=== PATIENT | female | born 1975 | race Caucasian/White ===

== ENCOUNTER 2016-03-18 11:40 | Observation (INO) | payer OTHER, MEDICARE ==
[2016-03-18] MEDS ORDERED: Zofran 4 MG/2 ML VIAL IV ONE (11:54)
[2016-03-18] MEDS ORDERED: TORAdol 30 mg Injection IV ONE (11:54)
[2016-03-18] MEDS ORDERED: Sodium Chloride 0.9% 1000 ML 1,000 ML ONE (12:18)
[2016-03-18] MEDS ORDERED: TORAdol 30 mg Injection ONE (12:18)
[2016-03-18] MEDS ORDERED: Zofran 4 MG/2 ML VIAL ONE (12:18)
[2016-03-18] MEDS: Sodium Chloride 0.9% 1000 ML 1,000 ML IV SCH (12:20)
[2016-03-18 12:26] LABS: Mean Cell Volume 89.9 fl (78-100); Mean Corpuscular Hemoglobin 28.3 pg (26-32); Platelet Count 305 K/mm3 (150-450); Red Blood Count 4.67 M/mm3 (4.1-5.4); Red Cell Distribution Width 18.7 % (11.5-14.0); White Blood Count 11.5 K/mm3 (4.0-10.5)
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
[2016-03-18 12:48] LABS: ALKALINE PHOSPHATASE 91 U/L (46-116); ANION GAP 15.4 MEQ/L (5-15); BLOOD UREA NITROGEN 8 mg/dL (9-20); CHLORIDE 102 mEq/L (98-107); Carbon Dioxide 24.1 mEq/L (21-32); Glucose 102 MG/DL (70-110); Potassium 4.4 mEq/L (3.5-5.1); SGOT/AST 29 U/L (15-37); SGPT/ALT 14 U/L (12-78); SODIUM 137 mEq/L (136-145); Total Protein 7.8 gm/dL (6.4-8.2)
[2016-03-18 13:23] LABS: Basophil 1 % (0.0-1.0); Eosinophil 2 % (0.00-3.0); Total Cells Counted 100
[2016-03-18 13:25] LABS: Platelet Estimate NORMAL (NORMAL)
[2016-03-18 13:26] LABS: ANISOCYTOSIS 1+
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
[2016-03-18] MEDS ORDERED: Zofran 4 MG/2 ML VIAL IV PRN ×2 (14:26→15:41)
[2016-03-18] MEDS ORDERED: TORAdol 30 mg Injection IV PRN (14:26)
[2016-03-18] MEDS ORDERED: Ativan 1 MG PO ONE (14:35)
[2016-03-18] MEDS ORDERED: Ativan 1 MG ONE (14:36)
[2016-03-18 14:49] LABS: Collection Type VOID
[2016-03-18 14:50] LABS: COMPLETE URINE MICROSCOPIC? NO; Ph 6.5 (5-6)
[2016-03-18] MEDS: TORAdol 30 mg Injection IV PRN ×2 (16:14→22:08)
[2016-03-18] MEDS: Nicoderm CQ 21 MG TOP SCH (16:14)
[2016-03-18] MEDS ORDERED: Ativan 0.5 MG PO PRN (16:37)
[2016-03-18] MEDS ORDERED: Norco 10/325 MG Tablet PO PRN (20:42)
[2016-03-18] MEDS: NORTRIPTYLINE HCL PO SCH (21:31)
[2016-03-18] MEDS: NON-FORMULARY ITEM PO SCH (21:32)
[2016-03-18] MEDS: Risperdal 1 MG PO SCH (21:32)
[2016-03-18] MEDS ORDERED: NORTRIPTYLINE HCL PO SCH (22:00)
[2016-03-18] MEDS ORDERED: NON-FORMULARY ITEM (Lorazepam [Ativan] 2 MG) PO SCH (22:00)
[2016-03-19] MEDS: Ativan 1 MG PO PRN ×4 (01:10→22:31)
[2016-03-19] MEDS: TORAdol 30 mg Injection IV PRN ×3 (06:59→19:02)
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
[2016-03-19] MEDS: NEURONTIN 300 MG PO SCH (08:59)
[2016-03-19] MEDS: OXYCODONE-ACETAMINOPHEN 10-325 PO PRN ×3 (09:00→21:02)
[2016-03-19] MEDS: Sodium Chloride 0.9% 1000 ML 1,000 ML IV SCH (09:10)
[2016-03-19] MEDS: Nicoderm CQ 21 MG TOP SCH (09:10)
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
[2016-03-19] MEDS ORDERED: GABAPENTIN PO SCH (10:00)
[2016-03-19] MEDS: Cyclobenzaprine 10 MG PO PRN (12:06)
[2016-03-19] MEDS: NON-FORMULARY ITEM PO SCH (21:01)
[2016-03-19] MEDS: Risperdal 1 MG PO SCH (21:02)
[2016-03-19] MEDS: NORTRIPTYLINE HCL PO SCH (21:07)
[2016-03-20] MEDS: TORAdol 30 mg Injection IV PRN ×4 (01:16→19:32)
[2016-03-20] MEDS: Sodium Chloride 0.9% 1000 ML 1,000 ML IV SCH (05:00)
[2016-03-20] MEDS: OXYCODONE-ACETAMINOPHEN 10-325 PO PRN ×5 (05:02→21:35)
--- NOTE | 2016-03-20 08:31 | XRAY ---
Indication: Follow-up pneumothorax. Comparison: One day earlier PA/lateral chest demonstrates stable right apical pneumothorax with new small left base effusion and diminished right base atelectasis. Stable right rib fractures without subcutaneous emphysema. The remaining heart and lungs unremarkable.
[2016-03-20] MEDS: NEURONTIN 300 MG PO SCH (09:38)
--- NOTE | 2016-03-20 09:38 | PCM.DCORD ---
- Discharge Discharge Date: 03/20/16 Disposition: Home, Self-Care Condition: Good Prescriptions: New Cyclobenzaprine HCl 10 mg [Cyclobenzaprine 10 MG] 10 mg PO TID PRN PRN #21 tablet PRN Reason: Muscle Spasms Meloxicam [Mobic] 15 mg PO DAILY #30 tablet Continue Risperidone 1 mg [Risperdal 1 MG] 1 mg PO HS Nortriptyline HCl [Pamelor] 3 cap PO HS Gabapentin [Gralise] 1 tab PO DAILY Discontinued Propranolol HCl 0 mg PO UD Lorazepam [Ativan] 2 mg PO HS Additional Instructions: Follow up with Dr. Joiner in one week and you will need to have a repeat chest X -ray ordered at that time for follow up. Follow up with: SAMY JOINER [ACTIVE STAFF] -
[2016-03-20] MEDS: Cyclobenzaprine 10 MG PO PRN ×2 (11:07→17:27)
[2016-03-20] MEDS: Ativan 1 MG PO PRN ×3 (11:07→23:04)
[2016-03-20] MEDS: Nicoderm CQ 21 MG TOP SCH (13:28)
[2016-03-20] MEDS: Risperdal 1 MG PO SCH (21:35)
[2016-03-20] MEDS: NON-FORMULARY ITEM PO SCH (21:37)
[2016-03-20] MEDS: NORTRIPTYLINE HCL PO SCH (21:37)
[2016-03-21] MEDS: TORAdol 30 mg Injection IV PRN (03:07)
[2016-03-21] MEDS: Sodium Chloride 0.9% 1000 ML 1,000 ML IV SCH (03:16)
[2016-03-21] MEDS: OXYCODONE-ACETAMINOPHEN 10-325 PO PRN (08:22)
[2016-03-21] MEDS: Ativan 1 MG PO PRN (08:25)
[2016-03-21] MEDS: NEURONTIN 300 MG PO SCH (09:21)
[2016-03-21] MEDS: Cyclobenzaprine 10 MG PO PRN (11:00)
[2016-03-21] MEDS: Mobic 7.5 MG PO SCH ×2 (11:00→12:45)
[2016-03-21] MEDS: Nicoderm CQ 21 MG TOP SCH (11:04)
--- NOTE | 2016-03-21 11:10 | PCM.DCORD ---
- Discharge Discharge Date: 03/21/16 Disposition: Home, Self-Care Condition: Good Prescriptions: New Cyclobenzaprine HCl 10 mg [Cyclobenzaprine 10 MG] 10 mg PO TID PRN PRN #21 tablet PRN Reason: Muscle Spasms Meloxicam [Mobic] 15 mg PO DAILY #30 tablet Continue Risperidone 1 mg [Risperdal 1 MG] 1 mg PO HS Nortriptyline HCl [Pamelor] 3 cap PO HS Gabapentin [Gralise] 1 tab PO DAILY Discontinued Propranolol HCl 0 mg PO UD Lorazepam [Ativan] 2 mg PO HS Instructions: Pneumothorax, Rib Fracture Additional Instructions: Follow up with Dr. Joiner in one week and you will need to have a repeat chest X -ray ordered at that time for follow up. continue using incentive spirometer as advisor by respiratory therapy Follow up with: SAMY JOINER [ACTIVE STAFF] - Forms: Discharge Instructions
[2016-03-21] MEDS ORDERED: PERCOCET TABLET 5/325MG PO PRN (12:32)
[2016-03-21 13:53] VITALS: BP 136/93; PULSE 99; O2SAT 94
--- NOTE | 2016-03-22 09:31 | PROG NOTE ---
DISCHARGE DIAGNOSES: 1) RIGHT RIB FRACTURES OF THE THIRD, FOURTH AND FIFTH RIBS. 2) LEFT HAND PAIN. 3) RIGHT PNEUMOTHORAX. 4) ILLICIT DRUG USE. DISCHARGE PHYSICAL EXAMINATION: VITALS: Temperature current 97.7F, temperature max 98.2F, heart rate 79 to 97, respiratory rate 17 to 20, blood pressure 108 to 123 over 68 to 73. Oxygen saturation 96 to 100% on room air to 2 liters nasal cannula. GENERAL: The patient is sitting up in bed in no acute distress. CVS: She has a regular rate and rhythm. No murmurs, gallops or rubs. CHEST: Clear to auscultation bilaterally. No crackles or wheezes. ABDOMEN: Soft, nontender, nondistended with normal bowel sounds. EXTREMITIES: Legs are without any clubbing, cyanosis or edema. Her left hand is wrapped in an MARAL bandage which when removed there was significant swelling but no point tenderness. SKIN: Warm, dry and intact. HOSPITAL COURSE: RIGHT RIB FRACTURES OF THE THIRD, FOURTH AND FIFTH RIBS. She had a chest x-ray that initially revealed some subcutaneous air. The patient was given Percocet during her hospitalization for pain. However when she first came in her urine tox was positive for benzodiazepine and amphetamines. I explained to the patient because of this I cannot discharge her on any controlled medications and that the opiates are only indicated for acute pain for two or three days and she has received opiates for three days here in the hospital. I offered for her to stay here in the hospital for continued pain management with opiate but she stated she will just get her pain medicine from someone else or go to another emergency room. I did offer to prescribe Mobic 15 mg p.o. daily which is a pain medication and nonsteroidal anti-inflammatory. She will need to not mix this with other NSAID and to take this with food and this was written on her prescription. Continue the muscle relaxant. She was instructed that she should not be driving while taking this. 2) LEFT HAND PAIN. She had an x-ray that did not show any acute fracture. She will be following up with Dr. Joiner in a week so if this is still bothering her she can have another x-ray when the swelling has gone down. Continue with MARAL band. 3) RIGHT PNEUMOTHORAX. On repeat chest x-ray on 03/19/2016 which read as having a 10 to 20% right apical pneumothorax and tiny base hemothorax. General surgeon Dr. Damon was consulted and saw the patient. He wanted a repeat chest x-ray today which was stable according to the nurse who spoke with him. He wanted the patient discharged to home and to follow up with Dr. Joiner and have a repeat x-ray in a week. This was explained to the patient. She is currently stable on room air. 4) ILLICIT DRUG USE: The patient was counseled that she should not be using prescriptions that are not hers or illicit drugs and that she should not be driving while taking these medications. The patient reports that she has a note from the previous doctor who is now retired that she can take the benzodiazepines while she drives but the patient reports that she has no primary care physician at this time. DISCHARGE MEDICATIONS: Please see the discharge order. FOLLOW UP: She is to follow up with Dr. Joiner in once for follow up from her hospital stay. DISPOSITION: The patient was discharged to home in fair condition.
--- NOTE | 2016-03-22 09:32 | DS ---
DISCHARGE DIAGNOSIS: 1. RIGHT RIB FRACTURES, 3RD, 4TH, AND 5TH RIBS. 2. LEFT HAND PAIN. 3. RIGHT PNEUMOTHORAX. 4. ILLICIT DRUG USE. DISCHARGE PHYSICAL EXAM: VITALS: Temperature current 97.8, temperature maximum 98.0, heart rate 84-103, respiratory rate 20-23, O2 saturation 94-97% on room air, BP 124-138/66-90. GENERAL: The patient is lying in bed in no acute distress. CVS: She has a regular rate and rhythm. No murmurs, gallops, or rubs. CHEST: Clear to auscultation bilaterally. No crackles or wheezes. ABDOMEN: Soft, nontender, nondistended with normal bowel sounds. EXTREMITIES: No clubbing, cyanosis, or edema. The left hand continues to have some swelling, but it is much improved and no point tenderness. HOSPITAL COURSE: 1. Right rib fractures of 3rd, 4th, and 5th. She was given Toradol and oxycodone while here in the hospital. She was discharged with a prescription for Mobic 15 mg PO daily. Her nurse did note that she refused a dose of Mobic here in the hospital this morning. The patient voiced that she would like to go home today. 2. Left hand pain. This has significantly improved over the past 24 hours. 3. Right pneumothorax. The general surgeon, Dr. Damon, saw her and repeated a chest x-ray yesterday that was stable and wanted her to follow-up with her PCP which she will see Dr. Joiner for 1 visit as she does not have a PCP and she will need a repeat chest x-ray ordered at that time. 4. Illicit drug use. The patient had been counseled yesterday that she should not be driving while taking these medications and she should not be using medications that are not prescribed to her. DISPOSITION: The patient was discharged to home in fair condition to follow-up with Dr. Joiner in 1 week. She may resume her home medications. Script was also given for Mobic 15 mg PO daily and cyclobenzaprine 10 mg PO tid PRN. The patient was noted on the script that she should not be driving while taking the cyclobenzaprine.
== END 2016-03-21 14:00 | disposition home or self-care (01) ==
LOC: ED 11:40 → MED SURG 14:43
PROVIDERS: ADMIT Family Medicine; ATTEND Family Medicine
DX: S22.41XA Multiple fractures of ribs, right side, initial encounter for closed fracture (principal); M79.642 Pain in left hand; J93.83 Other pneumothorax; F15.90 Other stimulant use, unspecified, uncomplicated; M79.605 Pain in left leg; S60.222A Contusion of left hand, initial encounter; V49.9XXA Car occupant (driver) (passenger) injured in unspecified traffic accident, initial encounter; F41.9 Anxiety disorder, unspecified; Z79.899 Other long term (current) drug therapy
CPT/HCPCS: 36000; 36415; 71010; 71020; 71100; 72072; 73130; 73502; 73552; 80053; 80307; 80320; 81002; 83986; 85025; 93268; 94760; 96360; 96361; 99284; 99285; G0378; J1885; J2405; L0625